=== PATIENT | female | born 2005 | race African-American/Black ===

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

== ENCOUNTER 2023-05-23 11:38 | Inpatient (IN) | payer OTHER, SELFPAY ==
[2023-05-23] VITALS (13 sets, daily range): BP systolic 115–136; BP diastolic 60–92; PULSE 104–132; RESP 14–25; TEMP 36.5–36.6; O2SAT 99–100; BMI 15.0
--- NOTE | ~2023-05-23 | XR_ITS ---
EXAMINATION: XR chest 1V portable DATE: 05/23/2023 14:21 INDICATION: Diabetic ketoacidosis TECHNIQUE: One view COMPARISON: None FINDINGS: Liver shadow projects over the anterior right fifth rib. No other airspace opacities, pulmonary edema , pleural effusion or pneumothorax. The cardiomediastinal silhouette is normal. Visualized bones and soft tissues are unremarkable. IMPRESSION: 1. No acute cardiopulmonary disease. Reviewed, dictated and finalized at location B.
[2023-05-23 11:46] LABS: Glucose Point of Care 459 mg/dl (65-105)
[2023-05-23 12:24] LABS: Hematocrit 48.4 % (37.0-47.0); Mean Corpuscular HGB Conc 33.1 g/dl (32-36); Mean Corpuscular Hemoglobin 27.3 pg (26-34); Mean Corpuscular Volume 82.5 fl (80-100); Mean Platelet Volume 10.2 fl (7.4-10.4); Platelet Count Result 505 k/mm3 (150-375); Red Blood Count 5.87 M/mm3 (4.2-5.4); Red Cell Distribution Width 17.2 % (11.5-14.5); White Blood Count 24.9 K/mm3 (4.5-10.0)
[2023-05-23 12:39] LABS: Alanine Aminotransferase 19 U/L (6-35); Albumin Level 5.3 g/dL (3.7-5.6); Alkaline Phosphatase 196 U/L (45-116); Aspartate Amino Transferase 19 U/L (14-36); Bilirubin,Total 0.8 mg/dL (0.2-1.3); Blood Urea Nitrogen 10 mg/dL (8-21); Calcium 9.7 mg/dL (8.9-10.7); Carbon Dioxide < 5 mmol/L (22-30); Chloride 105 mmol/L (98-107); Estimated CRCL calculation 49 ml/min; Estimated Glomerular Filt Rate > 60; Glucose 500 mg/dL (65-110); Lipase 109 U/L (23-300); Potassium 4.9 mmol/L (3.4-5.0); Sodium 138 mmol/L (134-143)
[2023-05-23 12:41] LABS: Band Neutrophils Percent 3 % (0-6); Lymphocytes Absolute Manual 0.24 K/mm3 (1.1-4.5); Monocytes Absolute Manual 0.24 K/mm3 (0.1-0.90); Monocytes Percent Manual 1 % (3-9); Neutrophils Percent Manual 95 % (46-73); Nucleated Red Blood Cells 1 %; Total Cells Counted 100
[2023-05-23 12:42] LABS: Schistocytes None Seen (NORMAL)
[2023-05-23 12:49] LABS: Alveolar/Arterial O2 Gradient < 0.0 mmHg; Base Excess ABG -22.6 mEq/l (+/-2.0); Carboxyhemoglobin 0.8 % THb (0-2.0); Fractional Inspired Oxygen 21 %; Methemoglobin ABG 0.7 %THb (0-1.5); Oxygen Content ABG 21.9 %vol (16.0-22.0); Oxygen Saturation ABG 97.6 % (95.0-100.0); Oxyhemoglobin 96.6 % THb (90.0-100.0); PO2 ABG 130.8 mmHg (80.0-100.0); PO2 FiO2 Ratio Arterial Blood 6.23 %; Reduced Hemoglobin 1.9 %THb (0-5.0)
[2023-05-23 12:50] LABS: Device ROOM AIR; Modified Allen's Test Pass; PCO2 ABG 16.6 mmHg (35.0-45.0); Site Drawn LEFT RADIAL; pH ABG 7.097 (7.350-7.450)
--- NOTE | 2023-05-23 12:55 | PC.NURSE ---
Re from IV access at bedside at this time.
[2023-05-23] MEDS: SODIUM CHLORIDE 0.9% IV 1,000 ML 999 ML IV CONT ×2 (13:17→13:18)
[2023-05-23] MEDS: ONDANSETRON INJ 4 MG/2 ML VIAL IV PUSH ×2 (13:18→15:45)
[2023-05-23 13:29] LABS: Appearance Urine Clear (Clear); Bacteria Urine None Seen /hpf; Bilirubin Urine Negative (Negative); Blood Urine 3+ (Negative); Color Urine Yellow (Yellow); Glucose Urine UA 3+ mg/dL (Negative); Ketones Urine 4+ mg/dL (Negative); Leukocyte Esterase Ur Negative LEU/UL (Negative); Nitrate Urine Negative (Negative); Protein Urine 2+ mg/dL (Negative); RBC Urine 0-2 /hpf (0-2); Specific Grav Ur 1.023 (1.001-1.035); Squamous Epithelial Cell Urine None seen /hpf (Few); Urobilinogen Urine 0.2 mg/dL (<2.0); pH Urine 5.5 (5.0-9.0)
[2023-05-23 13:34] LABS: Add Urine Microscopic? YES
--- NOTE | 2023-05-23 14:08 | WPDCNINT ---
Assessment and Plan Assessment and plan (1) DKA (diabetic ketoacidosis): Code(s): E11.10 - Type 2 diabetes mellitus with ketoacidosis without coma Status: Acute Assessment and Plan: Patient appears to have a new diagnosis of type 1 diabetes and presented with DKA along with dehydration Patient is being given IV fluid bolus which will be followed with IV fluids infusion I have ordered Insulin infusion and Q1H glucose monitoring Serial labs have been ordered to monitor electrolytes and will replace electrolytes as needed Will transition to SC insulin once her AG is closed Consult dietitian and family life educator Patient at this time denies any abdominal pain and states her nausea vomiting has improved and would like to drink water. Will do trial of clear liquids (2) Dehydration: Code(s): E86.0 - Dehydration Status: Acute Assessment and Plan: See above (3) Leukocytosis: Code(s): D72.829 - Elevated white blood cell count, unspecified Status: Acute Assessment and Plan: UA negative for UTI chest x-ray pending Likely stress reaction from DKA Monitor at this time with no antibiotics (4) New onset type 1 diabetes mellitus, uncontrolled: Status: Acute Assessment and Plan: See above Plan DVT prophylaxis -SCDs Code Status - Full Code Total Critical Care Time - 32 minutes Due to a high probability of clinically significant, life threatening deterioration, the patient required my highest level of preparedness to intervene emergently and I personally spent this critical care time directly and personally managing the patient. This critical care time included obtaining a history; examining the patient; pulse oximetry; ordering and review of studies; arranging urgent treatment with development of a management plan; evaluation of patient's response to treatment; frequent reassessment; and discussions with other providers. It was exclusive of separately billable procedures and treating other patients and teaching time. Please see Assessment and Plan section and the rest of the note for further information on patient assessment and treatment Airborne Operations Manager Consult Note Consult date: 05/23/23 Reason for consult: DKA HPI: Toña Juarez is a 17 year old female with past medical history of menorrhagia and blood loss anemia who presented to ER with chief complaint of nausea vomiting. Patient states that she started feeling sick 1 week ago and was noticing frequent urination and excessive thirst. Her appetite was poor and she was only drinking liquids. She denies any chest pain or abdominal pain at that time. Later she developed nausea and last night she developed vomiting had 3-4 episodes of vomiting. No blood in the vomitus. She complained of dyspnea on exertion but no cough. No fever chest pain dysuria hematuria hematochezia melena. No dizziness lightheadedness or blurring of vision. She denies any diarrhea. She did had some headache. She also admits to having irregular menstrual cycles which are heavy and bleeding last approximately 8 days. She is currently on her menstrual period at this time. She states she was prescribed oral contraceptive pills but she discontinued taking them due to side effect. She does not take any medication. All other systems were reviewed and were negative. In ED patient was found to be having blood sugar of 500 positive anion gap. Beta hydroxybutyrate of 9.3 pH of 7.09 and WBC of 24.9. Patient receiving IV fluid bolus. UA was negative for evidence of UTI. Patient is going to be admitted to ICU for DKA Review of Systems Review of Systems: All systems reviewed & are unremarkable except as noted in HPI and below (HPI) [facility] Past Medical History Medical History (Updated 05/23/23 @ 14:10 by Selvin Nunez MD) Acute blood loss anemia Menorrhagia Family History Family History (Updated 05/23/23 @ 14:09 by Selvin Nunez MD) Sibling Lupus
[2023-05-23] MEDS: INSULIN HUMAN REGULAR (*BKC) 100 UNITS in SODIUM CHLORIDE 0.9% IV 99 ML 8.8 UNITS IV CONT (14:10)
--- NOTE | 2023-05-23 14:14 | ED.GENADULT ---
HPI - General Adult General Chief complaint: Nausea/Vomiting/Diarrhea Stated complaint: n/v Time Seen by Provider: 05/23/23 11:59 History of Present Illness HPI narrative: Patient is a 17-year-old female who presents ER with nausea and vomiting. Ongoing over the last 3 days. No known sick contacts. No diarrhea. No abdominal discomfort. Patient also reports that she has been having increased thirst and urination over the last 2 weeks. Patient was found to be hyperglycemic in triage. Patient has no known history of diabetes. No aggravating or alleviating factors. Related Data Home Medications Medication Instructions Recorded Confirmed No Home Medications 09/18/20 05/23/23 Allergies Allergy/AdvReac Type Severity Reaction Status Date / Time No Known Allergies Allergy Verified 09/18/20 18:22 Review of Systems Review of Systems: All systems reviewed & are unremarkable except as noted in HPI and below Constitutional: Constitutional: Denies chills, Reports fatigue and Denies fever(s) ENT: Denies nasal congestion and Denies sore throat Cardiovascular: Cardiovascular: Denies chest pain, Denies rapid heart rate and Denies radiating jaw, neck or arm pain Respiratory: Respiratory: Denies cough and Denies dyspnea Gastrointestinal: Gastrointestinal: Denies abdominal pain, Denies diarrhea, Reports nausea and Reports vomiting Genitourinary: Genitourinary: Denies hematuria, Reports nocturia, Denies dysuria and Denies flank pain Neurologic: Denies focal weakness and Denies numbness Endocrine: Endocrine: Reports polydipsia and Reports polyuria PMFSH Past Medical History Medical History (Updated 05/23/23 @ 19:25 by Amado Boyer MD) Anemia History of blood transfusion related to menometrorrhagia. Menometrorrhagia Single seizure (2018) Surgical History Surgical History (Updated 05/23/23 @ 16:59 by Yee Caraballo PA-C) No history of previous surgery Family History Family History Sibling Lupus Sickle cell trait Sibling Ovarian cyst Sickle cell anemia Other Diabetes mellitus Social History Social History (Updated 05/23/23 @ 17:00 by Yee Caraballo PA-C) Social History: Surrogate medical decision maker: Birgit Juarez, mother. Code status: Full code. Smoking status: Current every day smoker Tobacco type: e-cigarettes/vaping Alcohol intake: never Substance use: never Substance use type: marijuana Other substance usage details: uses socially Lack of Transportation: No Lack of Food: Never True Current Housing: I Have Housing Concerned About Future Housing: No Difficulty Paying Gas/Electric Bills: No Difficulty Paying for Meds: No Currently Unemployed: No Education: Decline to Answer Difficulty w/ Childcare or Family Care: No Spiritual care concerns: No Exam Narrative: GENERAL: Ill-appearing, thin, and in no acute distress. HEAD: Normocephalic, atraumatic. EYES: PERRL and EOMI. NECK: Supple. CHEST: Clear to auscultation. No respiratory distress. Breath smells of ketones HEART: Tachycardic and regular. Normal peripheral pulses. ABDOMEN: Soft, nontender, nondistended. EXTREMITIES: Normal range of motion. No edema. SKIN: Warm, dry, no rash. NEURO: Alert and oriented x3. PSYCH: Normal mood and affect. Course Course Emergency Course: Patient being aggressively hydrated. Educated on seriousness of her illness. Discussed her acidosis and elevated blood sugars. Discussed that she will require IV insulin and admission to the ICU. The fig washer has been consulted and has accepted the patient. I have also discussed with the hospitalist service who will accept the patient for admission. Vital Signs Vital signs: Vital Signs Pulse Rate 126 H 05/23/23 11:36 Respiratory Rate 17 05/23/23 11:36 Blood Pressure 115/92 H 05/23/23 11:36 Pulse Oximetry 99 05/23/23 11:36
[2023-05-23 14:18] LABS: Glucose Point of Care 371 mg/dl (65-105)
[2023-05-23 14:55] LABS: Blood Urea Nitrogen 9 mg/dL (8-21); Calcium 7.4 mg/dL (8.9-10.7); Carbon Dioxide < 5 mmol/L (22-30); Chloride 116 mmol/L (98-107); Estimated CRCL calculation 60 ml/min; Estimated Glomerular Filt Rate > 60; Glucose 361 mg/dL (65-110); Magnesium 1.8 mg/dL (1.6-2.3); Phosphorus 4.5 mg/dL (2.5-4.5); Potassium 4.9 mmol/L (3.4-5.0); Sodium 142 mmol/L (134-143); Triglycerides 267 mg/dL (<150)
--- NOTE | 2023-05-23 15:00 | PC.NURSE ---
This patient, Toña Juarez, was admitted to Intensive Care Unit-3. Patient/family oriented to hospital policies and general routines including ID bracelet, bed and alarms, visiting hours, pain management, procedures, bathroom and other care routines, personal items, smoking policy, room service/diet, and visiting hours. Information on how to activate the Rapid Response Team has been discussed. Patient/Family are encouraged to report perceived risks to care and to ask questions if they do not understand what they are told or what they should do.
[2023-05-23 15:06] LABS: Hemoglobin A1C 10.8 % (<5.7)
[2023-05-23] MEDS: SODIUM CHLORIDE 0.9% IV 1,000 ML 100 ML IV CONT (15:11)
[2023-05-23 15:19] LABS: Glucose Point of Care 311 mg/dl (65-105)
[2023-05-23] MEDS: KCL 20 MEQ/D5/0.45% SOD CHL 1,000 ML 100 ML IV CONT (16:21)
[2023-05-23 16:41] LABS: Glucose Point of Care 222 mg/dl (65-105)
--- NOTE | 2023-05-23 16:54 | PM.IMHP ---
H&P: HPI History of Present Illness Date/Time: 05/23/23 18:00 Chief Complaint: Nausea and vomiting. Narrative: This is a 17-year-old female with history of menometrorrhagia and anemia requiring transfusion who presented to the emergency department via EMS from home for evaluation of nausea and vomiting. The patient provides the following history. She has not felt well for upwards of 1 week with symptoms to include excessive thirst and frequent urination. Her appetite has been poor and she has only been drinking liquids. She has been nauseated the last several days and last night she had 3 to 4 episodes of nonbloody and nonbilious emesis. She was afebrile and tachycardic on arrival to the ED with stable blood pressures. Labs were significant for a WBC count of 24.9, hemoglobin 16.0, sodium 142, potassium 4.9, chloride 116, carbon dioxide less than 5, creatinine 0.80, glucose 361, total protein 10.0, beta hydroxybutyrate 9.30. ABG showed a pH of 7.097, pCO2 16.6, and a bicarb of 5. Urine was positive for 2+ protein, 3+ glucose, 4+ ketones, and 3+ blood (she is currently on her menstrual cycle which is heavy as per usual). Chest x-ray showed no acute findings. She received 2 L fluid bolus in the ED and she has been started on insulin drip for diabetic ketoacidosis. At the time my evaluation she is tolerating ice chips and she has not had any episodes of emesis since admission. She denies fever, chills, and sweats. No cold or flu symptoms. Throat is a bit sore which she attributes to vomiting. Denies diarrhea. No dysuria. She is currently on her menstrual cycle and has some pelvic discomfort. She has always been thin but she has loss of weight recently. Review of Systems Review of Systems: Twelve systems were reviewed and are negative except for as per HPI. [facility] Past Medical History Medical History Anemia History of blood transfusion related to menometrorrhagia. Menometrorrhagia Single seizure (2018) Surgical History Surgical History No history of previous surgery Family History Family History Sibling Lupus Sickle cell trait Sibling Ovarian cyst Sickle cell anemia Other Diabetes mellitus Social History Social History Social History: Surrogate medical decision maker: Birgit Juarez, mother. Code status: Full code. Smoking status: Current every day smoker Tobacco type: e-cigarettes/vaping Alcohol intake: never Substance use: never Substance use type: marijuana Other substance usage details: uses socially Lack of Transportation: No Lack of Food: Never True Current Housing: I Have Housing Concerned About Future Housing: No Difficulty Paying Gas/Electric Bills: No Difficulty Paying for Meds: No Currently Unemployed: No Education: Decline to Answer Difficulty w/ Childcare or Family Care: No Spiritual care concerns: No Meds Home Medications and Allergies Home Medications Medication Instructions Recorded Confirmed Type No Home Medications 09/18/20 05/23/23 History Allergies Allergy/AdvReac Type Severity Reaction Status Date / Time No Known Allergies Allergy Verified 09/18/20 18:22 Vital Signs Vital Signs - 24 hr 05/23/23 11:36 05/23/23 12:39 05/23/23 13:16 Temperature Pulse Rate 126 H 122 H 111 H Respiratory Rate 17 20 21 H Blood Pressure 115/92 H 136/87 136/87 Pulse Oximetry 99 100 100 Oxygen Delivery Room Air 05/23/23 14:13 05/23/23 14:32 05/23/23 15:10 Temperature Pulse Rate 129 H 132 H 122 H Respiratory Rate 25 H 21 H 18 Blood Pressure 129/81 129/81 133/70 Pulse Oximetry 100 100 100 Oxygen Delivery 05/23/23 15:56 05/23/23 16:00 05/23/23 16:00 Temperature 97.7 F Pulse Rate 123 H 123 H Respirator
[2023-05-23 17:18] LABS: Glucose Point of Care 160 mg/dl (65-105)
[2023-05-23 18:06] LABS: Glucose Point of Care 153 mg/dl (65-105)
[2023-05-23 18:28] LABS: Anion Gap 14 mmol/L (8-16); Blood Urea Nitrogen 7 mg/dL (8-21); Calcium 7.9 mg/dL (8.9-10.7); Carbon Dioxide 7 mmol/L (22-30); Chloride 115 mmol/L (98-107); Estimated CRCL calculation 72 ml/min; Estimated Glomerular Filt Rate > 60; Glucose 147 mg/dL (65-110); Sodium 136 mmol/L (134-143)
[2023-05-23 19:01] LABS: Glucose Point of Care 151 mg/dl (65-105)
[2023-05-23 20:20] LABS: Glucose Point of Care 152 mg/dl (65-105)
[2023-05-23 21:10] LABS: Glucose Point of Care 142 mg/dl (65-105)
[2023-05-23 22:14] LABS: Anion Gap 11 mmol/L (8-16); Blood Urea Nitrogen 5 mg/dL (8-21); Calcium 8.2 mg/dL (8.9-10.7); Carbon Dioxide 11 mmol/L (22-30); Chloride 112 mmol/L (98-107); Estimated CRCL calculation 72 ml/min; Estimated Glomerular Filt Rate > 60; Glucose 134 mg/dL (65-110); Potassium 3.9 mmol/L (3.4-5.0); Sodium 134 mmol/L (134-143)
[2023-05-23] MEDS: LACTATED RINGERS 1,000 ML 75 ML IV CONT (22:59)
[2023-05-23] MEDS: INSULIN GLARGINE (*BKC) 100 UNITS/ML 10 UNITS SUB-Q (22:59)
[2023-05-23] MEDS: FAMOTIDINE 20 MG/2 ML VIAL IV PUSH (23:00)
--- NOTE | 2023-05-23 23:10 | PC.NURSE ---
2220 Dr Nunez informed of bmp results. orders received.
[2023-05-24] VITALS (11 sets, daily range): BP systolic 110–145; BP diastolic 60–86; PULSE 92–110; RESP 16–22; TEMP 36.5–37.1; O2SAT 100; BMI 15.0
[2023-05-24 00:46] LABS: Glucose Point of Care 155 mg/dl (65-105)
[2023-05-24 02:03] LABS: Hematocrit 33.6 % (37.0-47.0); Hemoglobin 11.3 g/dL (12.0-15.0); Mean Corpuscular HGB Conc 33.6 g/dl (32-36); Mean Corpuscular Hemoglobin 27.2 pg (26-34); Mean Corpuscular Volume 80.8 fl (80-100); Mean Platelet Volume 9.9 fl (7.4-10.4); Platelet Count Result 385 k/mm3 (150-375); Red Blood Count 4.16 M/mm3 (4.2-5.4); Red Cell Distribution Width 16.2 % (11.5-14.5); White Blood Count 21.1 K/mm3 (4.5-10.0)
[2023-05-24 02:22] LABS: Alanine Aminotransferase 13 U/L (6-35); Albumin Level 3.6 g/dL (3.7-5.6); Alkaline Phosphatase 108 U/L (45-116); Anion Gap 14 mmol/L (8-16); Aspartate Amino Transferase 18 U/L (14-36); Bilirubin,Total 0.7 mg/dL (0.2-1.3); Blood Urea Nitrogen 4 mg/dL (8-21); Calcium 8.5 mg/dL (8.9-10.7); Carbon Dioxide 10 mmol/L (22-30); Chloride 111 mmol/L (98-107); Estimated CRCL calculation 72 ml/min; Estimated Glomerular Filt Rate > 60; Glucose 154 mg/dL (65-110); Magnesium 1.7 mg/dL (1.6-2.3); Potassium 4.2 mmol/L (3.4-5.0); Sodium 135 mmol/L (134-143)
[2023-05-24 03:20] LABS: Thyroid Stimulating Hormone Reflex 0.991 uIU/mL (0.465-4.68)
[2023-05-24 03:46] LABS: Band Neutrophils Percent 5 % (0-6); Large Platelets Present; Lymphocytes Absolute Manual 2.53 K/mm3 (1.1-4.5); Monocytes Absolute Manual 0.63 K/mm3 (0.1-0.90); Monocytes Percent Manual 3 % (3-9); Neutrophils Absolute Manual 17.93 K/mm3 (1.7-7.2); Neutrophils Percent Manual 80 % (46-73); Ovalocytes 1+ (NORMAL); Platelet Estimate Adequate (Adequate); Schistocytes None Seen (NORMAL); Total Cells Counted 100
[2023-05-24 05:36] LABS: Glucose Point of Care 211 mg/dl (65-105)
[2023-05-24] MEDS: INSULIN ASPART (*BKC) 100 UNITS/ML SUB-Q ×5 (05:36→22:11)
[2023-05-24 06:41] LABS: Anion Gap 12 mmol/L (8-16); Blood Urea Nitrogen 4 mg/dL (8-21); Calcium 8.7 mg/dL (8.9-10.7); Carbon Dioxide 15 mmol/L (22-30); Chloride 107 mmol/L (98-107); Estimated CRCL calculation 64 ml/min; Estimated Glomerular Filt Rate > 60; Glucose 197 mg/dL (65-110); Potassium 3.8 mmol/L (3.4-5.0); Sodium 134 mmol/L (134-143)
[2023-05-24 07:58] LABS: Glucose Point of Care 153 mg/dl (65-105)
[2023-05-24] MEDS: POTASSIUM CHLORIDE 20 MEQ ER TABLET PO (08:15)
[2023-05-24] MEDS: MAGNESIUM OXIDE 400 MG TABLET PO (08:15)
--- NOTE | 2023-05-24 08:25 | WPDINTPN ---
Progress Note: A&P Assessment and Plan (1) DKA (diabetic ketoacidosis): Code(s): E11.10 - Type 2 diabetes mellitus with ketoacidosis without coma Status: Acute Assessment and Plan: Patient appears to have a new diagnosis of type 1 diabetes and presented with DKA along with dehydration Patient was given IV fluid bolus which will be followed with IV fluids infusion Patient was started on insulin infusion and Q1H glucose monitoring Serial labs were performed Her anion gap has closed and I have transition her to subcutaneous insulin including a long-acting Lantus, with meal insulin and sliding scale insulin dietitian and resident care technician consult pending Advance diet (2) Dehydration: Code(s): E86.0 - Dehydration Status: Acute Assessment and Plan: Improved with IV fluids. Will hold further IV fluids at this time (3) Leukocytosis: Code(s): D72.829 - Elevated white blood cell count, unspecified Status: Acute Assessment and Plan: UA and chest x-ray negative for any evidence of infection. Patient asymptomatic at this time Likely stress reaction from DKA Monitor at this time with no antibiotics (4) New onset type 1 diabetes mellitus, uncontrolled: Status: Acute Assessment and Plan: See above (5) Electrolyte abnormality: Code(s): E87.8 - Other disorders of electrolyte and fluid balance, not elsewhere classified Status: Acute Assessment and Plan: Magnesium and potassium replacement ordered Plan DVT prophylaxis -SCDs Code Status - Full Code Transfer out of ICU today Subjective Date/time seen: 05/24/23 Overnight events reviewed. Patient states he feels much better and denies any specific complaints. She states she is hungry and would like to eat food. Patient denies fever, chest pain, shortness of breath, cough, nausea vomiting, abdominal pain,, diarrhea, headache or constipation.. All other systems were reviewed and were negative. Vital signs stable Her anion gap closed overnight and she was transitioned to subcutaneous insulin Continues to be on IV fluids Review of Systems Review of Systems: All systems reviewed & are unremarkable except as noted in HPI and below (HPI) Exam Narrative: General: Pt is alert awake and in NAD. Petite female who appears underweight for her age Lungs/Chest: Trachea central Clear BS B/L, No crackles or wheezing. Cardiac: Regular rate and rhythm normal S1 S2. No murmurs Circulation: Pedal pulses are intact and symmetrical. Abdomen: Normal bowel sounds.. Soft. NT. ND. Extremities: No clubbing, cyanosis or edema. Warm : NAD Neurologic: Follows commands. Moves all 4 extremities PERRL AO x3 Skin: No Rash HEENT: Oral mucosa appears dry Objective Data Vital Signs Vital Signs: Vital Signs - 24 hr 05/23/23 11:36 05/23/23 12:39 05/23/23 13:16 Temperature Pulse Rate 126 H 122 H 111 H Respiratory Rate 17 20 21 H Blood Pressure 115/92 H 136/87 136/87 Pulse Oximetry 99 100 100 Oxygen Delivery Room Air 05/23/23 14:13 05/23/23 14:32 05/23/23 15:10 Temperature Pulse Rate 129 H 132 H 122 H Respiratory Rate 25 H 21 H 18 Blood Pressure 129/81 129/81 133/70 Pulse Oximetry 100 100 100 Oxygen Delivery 05/23/23 15:56 05/23/23 16:00 05/23/23 16:00 Temperature 36.5 C Pulse Rate 123 H 123 H Respiratory Rate 20 Blood Pressure 127/75 Pulse Oximetry 100 100 Oxygen Delivery Room Air 05/23/23 18:00 05/23/23 18:00 05/23/23 20:48 Temperature Pulse Rate 117 H 117 H Respiratory Rate 18 Blood Pressure 116/60 Pulse Oximetry 99 100 Oxygen Delivery Room Air 05/23/23 20:00 05/23/23 20:00 05/23/23 20:00 Temperature 36.6 C Pulse Rate 112 H 112 H Respiratory Rate 14 Blood Pressure 124/81 Pulse Oximetry 100 100 Oxygen Delivery Room Air 05/23/23 21:56 05/23/23 22:00 05/24/23 00:00 Temperature Pulse Rate 104 H 105 H 103 H Respiratory Rate
[2023-05-24 10:18] LABS: Anion Gap 12 mmol/L (8-16); Blood Urea Nitrogen 4 mg/dL (8-21); Calcium 8.4 mg/dL (8.9-10.7); Carbon Dioxide 15 mmol/L (22-30); Chloride 109 mmol/L (98-107); Estimated CRCL calculation 64 ml/min; Estimated Glomerular Filt Rate > 60; Glucose 164 mg/dL (65-110); Potassium 3.6 mmol/L (3.4-5.0); Sodium 136 mmol/L (134-143)
[2023-05-24 11:54] LABS: Glucose Point of Care 122 mg/dl (65-105)
--- NOTE | 2023-05-24 12:40 | WPDPN ---
Progress Note: A&P Assessment and Plan (1) Diabetic ketoacidosis: Code(s): E11.10 - Type 2 diabetes mellitus with ketoacidosis without coma Status: Acute Assessment and Plan: 05/24/2023 interval history: 17 y/o female is found to have new onset DM I, and presented with hyperglecemia was in DKA, admitted in ICU and DKA protocol was initiated with IV insulin and hydration, seen by follow up clerk and her blood sugars have trended down, her anion gap is closed, she if off insulin infusion and follow up clerk has started patient on long acting lantus 10U qhs. and sliding scale, patient has also educated by diabetes eduator, will monitor and further recommendation to follow. (2) Electrolyte abnormality: Code(s): E87.8 - Other disorders of electrolyte and fluid balance, not elsewhere classified Status: Acute Assessment and Plan: Most likely secondary to hyperglycemia will monitor and supplement. (3) Menometrorrhagia: Code(s): N92.1 - Excessive and frequent menstruation with irregular cycle Status: Acute Assessment and Plan: Patient with anemia will do iron studies. Subjective Date/time seen: 05/24/23 12:40 Interval history: Nausea and vomiting. HPI-Narrative: This is a 17-year-old female with history of menometrorrhagia and anemia requiring transfusion who presented to the emergency department via EMS from home for evaluation of nausea and vomiting.? The patient provides the following history. She has not felt well for upwards of 1 week with symptoms to include excessive thirst and frequent urination. Her appetite has been poor and she has only been drinking liquids. She has been nauseated the last several days and last night she had 3 to 4 episodes of nonbloody and nonbilious emesis. She was afebrile and tachycardic on arrival to the ED with stable blood pressures. Labs were significant for a WBC count of 24.9, hemoglobin 16.0, sodium 142, potassium 4.9, chloride 116, carbon dioxide less than 5, creatinine 0.80, glucose 361, total protein 10.0, beta hydroxybutyrate 9.30. ABG showed a pH of 7.097, pCO2 16.6, and a bicarb of 5. Urine was positive for 2+ protein, 3+ glucose, 4+ ketones, and 3+ blood (she is currently on her menstrual cycle which is heavy as per usual). Chest x-ray showed no acute findings. She received 2 L fluid bolus in the ED and she has been started on insulin drip for diabetic ketoacidosis. At the time my evaluation she is tolerating ice chips and she has not had any episodes of emesis since admission. She denies fever, chills, and sweats. No cold or flu symptoms. Throat is a bit sore which she attributes to vomiting. Denies diarrhea. No dysuria. She is currently on her menstrual cycle and has some pelvic discomfort. She has always been thin but she has loss of weight recently. 05/24/2023 interval history: 17 y/o female is found to have new onset DM I, and presented with hyperglecemia was in DKA, admitted in ICU and DKA protocol was initiated with IV insulin and hydration, seen by follow up clerk and her blood sugars have trended down, her anion gap is closed, she if off insulin infusion and follow up clerk has started patient on long acting lantus 10U qhs. and sliding scale, patient has also educated by diabetes eduator, will monitor and further recommendation to follow. Review of Systems Review of Systems: All systems reviewed & are unremarkable except as noted in HPI and below (HPI) Exam Narrative: Patient is comfortable, NAD HEENT: eyes are clear and none icteric LUNGS: Normal respiratory effort ABD: Not distended Lower extremities: no edema SKIN: nonjaundiced Neuro: grossly intact. Objective Data Vital Signs Vital Signs: Vital Signs - 24 hr 05/23/23 13:16 05/23/23 14:13 05/23/23 14:32 Temperature Pulse Rate 111 H 129 H 132 H Respiratory Rate 21 H 25 H 21 H Blood Pressure 136/87 129/81 129/81 Pulse Oximetry 100 100 100 Oxygen Delivery 05/23/23
--- NOTE | 2023-05-24 15:13 | PC.NURSE ---
This patient, Toña Juarez, was transferred to [facility] on 05/24/23 at 1513. Personal belongings sent with patient. Report given to CHARLENE Gutierrez. Appropriate documentation sent with patient.
[2023-05-24 17:02] LABS: Glucose Point of Care 227 mg/dl (65-105)
[2023-05-24 21:47] LABS: Glucose Point of Care 325 mg/dl (65-105)
[2023-05-24] MEDS: INSULIN GLARGINE (*BKC) 100 UNITS/ML 10 UNITS SUB-Q (22:12)
[2023-05-25 06:00] VITALS: BP 127/54; PULSE 110; RESP 16; TEMP 36.8; O2SAT 100
[2023-05-25 06:19] LABS: Basophils Percent Auto 0.5 % (0.2-1.2); Eosinophils Absolute Auto 0.1 K/mm3 (0-0.3); Eosinophils Percent Auto 1.9 % (0-4.4); Hematocrit 32.2 % (37.0-47.0); Immature Granulocyte Absolute 0.02 K/mm3 (0.00-0.031); Immature Granulocyte Percent A 0.3 % (0-0.5); Lymphocytes Absolute Auto 2.01 K/mm3 (0.9-3.2); Lymphocytes Percent Auto 31.9 % (18.3-44.2); Mean Corpuscular HGB Conc 34.2 g/dl (32-36); Mean Corpuscular Hemoglobin 27.4 pg (26-34); Mean Corpuscular Volume 80.1 fl (80-100); Mean Platelet Volume 9.7 fl (7.4-10.4); Monocytes Absolute Auto 0.5 K/mm3 (0.1-0.6); Monocytes Percent Auto 7.6 % (2.6-8.5); Neutrophils Absolute Auto 3.6 K/mm3 (1.3-6.7); Neutrophils Percent Auto 57.8 % (45.5-73.1); Platelet Count Result 309 k/mm3 (150-375); Red Blood Count 4.02 M/mm3 (4.2-5.4); Red Cell Distribution Width 16.2 % (11.5-14.5); White Blood Count 6.3 K/mm3 (4.5-10.0)
[2023-05-25 06:34] LABS: Alanine Aminotransferase 13 U/L (6-35); Albumin Level 3.4 g/dL (3.7-5.6); Alkaline Phosphatase 96 U/L (45-116); Anion Gap 8 mmol/L (8-16); Aspartate Amino Transferase 18 U/L (14-36); Blood Urea Nitrogen 3 mg/dL (8-21); Calcium 8.4 mg/dL (8.9-10.7); Carbon Dioxide 21 mmol/L (22-30); Chloride 105 mmol/L (98-107); Estimated CRCL calculation 83 ml/min; Estimated Glomerular Filt Rate > 60; Glucose 179 mg/dL (65-110); Magnesium 1.8 mg/dL (1.6-2.3); Potassium 3.3 mmol/L (3.4-5.0); Sodium 134 mmol/L (134-143)
[2023-05-25 06:40] LABS: Glucose Point of Care 209 mg/dl (65-105)
[2023-05-25 06:54] LABS: Iron 160 ug/dL (37-170)
[2023-05-25 07:03] LABS: Percent Iron Saturation 56 % (20-50)
[2023-05-25 07:34] LABS: Glucose Point of Care 249 mg/dl (65-105)
[2023-05-25 07:59] LABS: Folic Acid 11.3 ng/mL (2.76->20); Vitamin B12 > 1000.0 pg/mL (239-931)
[2023-05-25] MEDS: FAMOTIDINE 20 MG/2 ML VIAL IV PUSH (08:05)
[2023-05-25] MEDS: INSULIN ASPART (*BKC) 100 UNITS/ML SUB-Q ×2 (08:05)
--- NOTE | 2023-05-25 09:18 | PM.DS ---
DS: Admitting Diagnosis Discharge Date 05/25/2023 Admitting Diagnosis Nausea and vomiting. DS: Discharge Diagnosis Discharge Diagnosis (1) Diabetic ketoacidosis: Code(s): E11.10 - Type 2 diabetes mellitus with ketoacidosis without coma Status: Acute Assessment and Plan: 05/24/2023 interval history: 17 y/o female is found to have new onset DM I, and presented with hyperglecemia was in DKA, admitted in ICU and DKA protocol was initiated with IV insulin and hydration, seen by rag cutting machine tender and her blood sugars have trended down, her anion gap is closed, she if off insulin infusion and rag cutting machine tender has started patient on long acting lantus 10U qhs. and sliding scale, patient has also educated by diabetes eduator, will monitor and further recommendation to follow. (2) Electrolyte abnormality: Code(s): E87.8 - Other disorders of electrolyte and fluid balance, not elsewhere classified Status: Acute Assessment and Plan: Most likely secondary to hyperglycemia will monitor and supplement. (3) Menometrorrhagia: Code(s): N92.1 - Excessive and frequent menstruation with irregular cycle Status: Acute Assessment and Plan: Patient with anemia will do iron studies. DS: Summary Hospital Course Reason for hospitalization: Nausea and vomiting. Narrative: This is a 17-year-old female with history of menometrorrhagia and anemia requiring transfusion who presented to the emergency department via EMS from home for evaluation of nausea and vomiting.? The patient provides the following history. She has not felt well for upwards of 1 week with symptoms to include excessive thirst and frequent urination. Her appetite has been poor and she has only been drinking liquids. She has been nauseated the last several days and last night she had 3 to 4 episodes of nonbloody and nonbilious emesis. She was afebrile and tachycardic on arrival to the ED with stable blood pressures. Labs were significant for a WBC count of 24.9, hemoglobin 16.0, sodium 142, potassium 4.9, chloride 116, carbon dioxide less than 5, creatinine 0.80, glucose 361, total protein 10.0, beta hydroxybutyrate 9.30. ABG showed a pH of 7.097, pCO2 16.6, and a bicarb of 5. Urine was positive for 2+ protein, 3+ glucose, 4+ ketones, and 3+ blood (she is currently on her menstrual cycle which is heavy as per usual). Chest x-ray showed no acute findings. She received 2 L fluid bolus in the ED and she has been started on insulin drip for diabetic ketoacidosis. At the time my evaluation she is tolerating ice chips and she has not had any episodes of emesis since admission. She denies fever, chills, and sweats. No cold or flu symptoms. Throat is a bit sore which she attributes to vomiting. Denies diarrhea. No dysuria. She is currently on her menstrual cycle and has some pelvic discomfort. She has always been thin but she has loss of weight recently. Hospital Course: 17 y/o female is found to have new onset DM I, and presented with hyperglecemia was in DKA, admitted in ICU and DKA protocol was initiated with IV insulin and hydration, seen by rag cutting machine tender and her blood sugars have trended down, her anion gap is closed, she if off insulin infusion and rag cutting machine tender has started patient on long acting lantus 10U qhs. and sliding scale, patient has also educated by diabetes eduator, will monitor and further recommendation to follow. Patient was seen by health promotion educator patient is started on long-acting insulin and sliding scale, her mother is present in the room, patient understands insulin administration and hypoglycemia protocol, will discharge the patient today with her mother to follow-up with her primary care provider Time Spent with Patient Time attestation: Total time spent providing and/or coordinating discharge services: Exam Narrative: Patient is comfortable, NAD HEENT: eyes are clear and none icteric LUNGS: Normal respiratory effort ABD: Not distended
[2023-05-25 09:30] VITALS: BMI 15.0
--- NOTE | 2023-05-25 10:11 | PC.NURSE ---
0730 - pt's boyfriend came to nurses station stating the pt does not feel good and would like her blood sugar checked. Blood sugar was checked and was at 249. Pt's mother then came to the nurses station questioning why insulin wasn't given right away. RN educated pt and family member that insulin is given whenever it gets closer to breakfast time so that the pt's blood sugar doesn't drop. RN stated that in the hospital we give insulin ACHS and can of course check the pt's blood sugar if not feeling well or at request of the pt. RN also explained that when pt was in ICU on an insulin drip that a different protocol is used. Blood sugars are checked Q1H. Pt and family member express frustration and are not verbalizing understanding. Pt's mother called lodging house keeper and unit educator to come into the room for further explanation. 1030 - unit educator came to nurses station to speak with RN. She stated that family and patient are extremely agitated and frustrated with the whole situation. The educator stated that the pt's mom stated she is filing a complaint that insulin isn't given right away, no matter what time pt wants blood sugar checked. The student nurse tech then came to the nurses station stating that the family is saying the unit educator was being racist about the pt not being able to afford a glucose monitor. RN called nursing home manager, Jeff, to notify him of this situation.
--- NOTE | 2023-05-25 15:05 | PCCDE ---
11:25 am Identified [facility] Tran with recent formulary change, Lantus ? no longer covered. (discussed with counterpart) Advised nursing; order changed to T[place]. Pt family with questions, I was asked to talk with them again. I returned to room to advise re: timing of this insulin and similarities with the Lantus injections received in the hospital. ([place])
--- NOTE | 2023-05-30 09:43 | PC.NURSE ---
Attempted to contact pt. Someone answered pt.s phone. Said she will have Toña call me back.
== END 2023-05-25 11:30 | disposition home or self-care (01) | DRG 420 ==
LOC: ANHED 13:33 → ANHICU 14:43 → ANHIMU 14:47 → ANHICU 19:25 → ANH3MED 05-24 15:37
PROVIDERS: Emergency Medicine; Internal Medicine; Physician Assistant; Admitting Provider Internal Medicine; Emergency Provider Emergency Medicine; PCP Obstetrics & Gynecology; Visit Provider Family Medicine
DX: E10.10 Type 1 diabetes mellitus with ketoacidosis without coma (principal); E87.8 Other disorders of electrolyte and fluid balance, not elsewhere classified; D62 Acute posthemorrhagic anemia; E10.65 Type 1 diabetes mellitus with hyperglycemia; N92.1 Excessive and frequent menstruation with irregular cycle; D72.829 Elevated white blood cell count, unspecified; F17.290 Nicotine dependence, other tobacco product, uncomplicated; R63.6 Underweight; Z68.1 Body mass index [BMI] 19.9 or less, adult
CPT/HCPCS: 36415; 36600; 71045; 80048; 80053; 81001; 81025; 82010; 82375; 82607; 82728; 82746; 82805; 82948; 83036; 83050; 83540; 83550; 83690; 83735; 84100; 84443; 84478; 85025; 87086; 96361; 96365; 96375; 99285; A9270; G0378; G0379; J1815; J2405; J3480; J7030; J7120

== ENCOUNTER 2023-10-15 19:31 | Emergency (ER) | payer OTHER, SELFPAY ==
[2023-10-15 19:34] VITALS: BP 151/84; PULSE 120; RESP 20; TEMP 36.1; O2SAT 100
--- NOTE | 2023-10-15 23:27 | PC.NURSE ---
no answer for vs
== END 2023-10-15 23:27 | disposition left against medical advice (07) ==
LOC: ANHED 23:49
PROVIDERS: PCP Obstetrics & Gynecology
DX: R51.9 Headache, unspecified (principal)
CPT/HCPCS: 99199